=== PATIENT | male | born 1980 | race Caucasian/White ===

== ENCOUNTER 2018-02-26 12:31 | Emergency (ER) | payer SELFPAY ==
[~2018-02-26] VITALS: Ht 188 cm; Wt 125.0 kg
[~2018-02-26 12:31] MED LIST: IBUP800T23 PO; METO25 PO
[2018-02-26 12:34] VITALS: BP 183/126; PULSE 97; RESP 16; TEMP 97.3; O2SAT 98
--- NOTE | 2018-02-26 12:59 | PD ---
HPI Chief Complaint: Musculoskeletal Complaint Time Seen by Provider: 12:41 Travel History International Travel<30 days: No Contact w/Intl Traveler<30days: No Traveled to known affect area: No History of Present Illness HPI 37-year-old male presents emergency department for evaluation of right rib and low back pain. Says his back pain started 1 week ago after working and the rib pain began Miguelito after coughing. 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 Says the pain is worse with movement and decreases with rest. He points to his right lower lumbar paraspinous muscles. The pain is mild to moderate. No radiation of pain. Says he has fractured ribs previously after coughing and believes this is what happened Monday with his rib pain. Says the pain is worse with movement, decreased with rest. Pain is mild to moderate in severity. Aching. Denies trauma, loss of bowel or bladder function, saddle anesthesia, or weakness. Denies radicular pain. Denies abdominal pain. PFSH Past Medical History Diminished Hearing: No Hypertension: Yes Immunizations Current: No Myocardial Infarction: Yes Influenza Vaccination: No Past Surgical History Cardiac Surgery: Yes (angioplsty at age 13) Social History Alcohol Use: Yes (8 OR MORE DRINKS DAILY) Tobacco Use: Yes (2 PPD) Substance Use: No Allergies-Medications (Allergen,Severity, Reaction): Coded Allergies: No Known Allergies (Unverified Adverse Reaction, Unknown, 02/26/18) Reported Meds & Prescriptions Reported Meds & Active Scripts Active No Active Prescriptions or Reported Medications Review of Systems Except as stated in HPI: all other systems reviewed are Neg Physical Exam Narrative GENERAL: Well-nourished, well-developed patient. SKIN: Focused skin assessment warm/dry. HEAD: Normocephalic. EYES: No scleral icterus. No injection or drainage. NECK: Supple, trachea midline. No JVD or lymphadenopathy. CARDIOVASCULAR: Regular rate and rhythm without murmurs, gallops, or rubs. RESPIRATORY: Breath sounds equal bilaterally. No accessory muscle use. Slight wheeze GASTROINTESTINAL: Abdomen soft, non-tender, nondistended. No CVA tenderness Chest wall mildly tender to palpation in the lower axillary region without evidence of trauma BACK: No CVA tenderness. No rash. No point tenderness on palpation of the spine. Right paraspinous region just above the PSIS tender to palpation, reproducing his pain MUSCULOSKELETAL: No cyanosis, or edema. BACK: Nontender without obvious deformity. No CVA tenderness. Data Data Last Documented VS Vital Signs Date Time Temp Pulse Resp B/P (MAP) Pulse Ox O2 Delivery O2 Flow Rate FiO2 02/26/18 12:34 97.3 97 16 183/126 (145) 98 Orders Orders Chest, Pa & Lat (02/26/18 ) Spine, Lumbar - Ltd (Ap & Lat) (02/26/18 ) Methocarbamol (Robaxin) (02/26/18 13:00) Ed Discharge Order (02/26/18 13:45) [facility] Medical Decision Making Medical Screen Exam Complete: Yes Emergency Medical Condition: Yes Differential Diagnosis Lumbago, muscle spasms, rib fracture, costochondritis Narrative Course 37-year-old male presents emergency department evaluation right rib and low back pain that worsened over the last day. No red flag signs or symptoms. Vital signs are stable although he is mildly hypertensive, secondary to pain. Discussed my findings with the patient advised that images were not necessary at this point. Patient preferred to have imaging studies as he states that this is the worst back pain he has had. Chest x-ray and lumbar spine images ordered. Last Impressions Lumbar Spine X-Ray 02/26/18 0000 Signed Impressions: Service Date/Time: Monday, February 26, 2018 12:57 - CONCLUSION: Degenerative disc disease as above. Austen Cope MD FACR Chest X-Ray 02/26/18 0000 Signed Impressions: Service Date/Time: Monday, February 26, 2018 12:57 - CONCLUSION: Probably acute fracture of the left sixth rib. Probable old fracture as well. Austen Cope MD FACR Robaxin p.o. administered emergency department. Patient has an active lifestyle and I do not believe that he requires an incentive spirometer to avoid complications secondary to the rib fracture. Interestingly, patient did not complain of left rib pain. He complained of right rib pain that was not reproducible upon palpation. The lower back pain was reproducible upon palpation. No CVA tenderness. Patient will be discharged with Robaxin for outpatient use. Diagnosis Primary Impression: Muscle spasm Additional Impression: Rib fracture Qualified Codes: S22.32XA - Fracture of one rib, left side, initial encounter for closed fracture Referrals: Primary Care Physician Departure Forms: Tests/Procedures, Work Release Enter return to work date: Mar 01, 2018 Additional Instructions: Perform light stretches of the lower back and legs, and alternate heat and ice packs. If you develop increased pain, weakness, fever, chills, or bowel or bladder issues, return to the ED for further treatment and evaluation. Follow up with your primary care physician in 2-3 days. Scripts No Active Prescriptions or Reported Meds Disposition: 01 DISCHARGE HOME Condition: Stable Luna Jerry Feb 26, 2018 12:59
[2018-02-26] MEDS ORDERED: METHOCARBAMOL 500 MG TAB PO ONE (13:00)
--- NOTE | 2018-02-26 13:33 | RADRPT ---
EXAM DATE/TIME: 02/26/2018 12:57 [facility] COMPARISON: No previous studies available for comparison. INDICATIONS : Chest pain after coughing MEDICAL HISTORY : Hypertension. SURGICAL HISTORY : None. ENCOUNTER: Initial ACUITY: 1 day PAIN SCORE: 0/10 LOCATION: Right chest FINDINGS: PA and lateral views of the chest demonstrate the lungs to be symmetrically aerated without evidence of mass, infiltrate or effusion. The cardiomediastinal contours are unremarkable. Old rib fractures on the left with some soft tissue component.. Cannot entirely exclude an acute sixth rib fracture. CONCLUSION: Probably acute fracture of the left sixth rib. Probable old fracture as well. Austen Cope MD FACR on February 26, 2018 at 13:29 Board Certified Radiologist. This report was verified electronically.
--- NOTE | 2018-02-26 13:34 | RADRPT ---
EXAM DATE/TIME: 02/26/2018 12:57 [facility] COMPARISON: No previous studies available for comparison. INDICATIONS : Lumbar back pain MEDICAL HISTORY : Hypertension. SURGICAL HISTORY : None. ENCOUNTER: Initial ACUITY: 1 day PAIN SCORE: 6/10 LOCATION: lspine FINDINGS: Loss of disc space height at L5-S1. Minimal vacuum change is evident as well. Mild loss of disc spa ce height at L4-5. Moderate degenerative changes in the facets SI joints are normal. CONCLUSION: Degenerative disc disease as above. Austen Cope MD FACR on February 26, 2018 at 13:31 Board Certified Radiologist. This report was verified electronically.
== END 2018-02-26 13:53 | disposition home or self-care (01) ==
LOC: PHEFT 12:31
DX: M62.838 Other muscle spasm (principal); S22.32XA Fracture of one rib, left side, initial encounter for closed fracture; X58.XXXA Exposure to other specified factors, initial encounter; I10 Essential (primary) hypertension; I25.2 Old myocardial infarction; F17.200 Nicotine dependence, unspecified, uncomplicated
CPT/HCPCS: 71046; 72100; 99283

== ENCOUNTER 2018-04-24 16:17 | Emergency (ER) | payer OTHER ==
[~2018-04-24] VITALS: Ht 188 cm; Wt 124.0 kg
[2018-04-24 16:25] VITALS: BP 215/124; PULSE 114; RESP 16; TEMP 98.1; O2SAT 97
--- NOTE | 2018-04-24 16:36 | PD ---
HPI Chief Complaint: Musculoskeletal Complaint Time Seen by Provider: 16:34 Travel History International Travel<30 days: No Contact w/Intl Traveler<30days: No Traveled to known affect area: No History of Present Illness HPI 37-year-old male came to the emergency room with history of left knee joint swelling for past 5 days. Patient says that he has this problem every now and then and various different joints follow-up every now and then. 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 He was told once that he may have gout. He has never had a joint aspiration or a formal test for gout done. Patient is supposed to be on antihypertensive but he has not taken it for past few days. His blood pressure upon arrival was high and his heart rate was tachycardic. No history of fever or chills. Pain is there constantly but worsens when he tries to walk on the knee. He has been using crutches. No radiation of the pain. [facility] Past Medical History Narrative Medical List of his past medical, surgical, social and family history is reviewed from the nursing note. 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 Medrol Dosepak (Methylprednisolone) 4 Mg Dspk 4 Mg PO DIRECTED Per Pharmacist direction Reported Metoprolol Tartrate 25 Mg Tab 25 Mg PO DAILY Narrative Medication List of his home medications reviewed from the nursing note Review of Systems Except as stated in HPI: all other systems reviewed are Neg Musculoskeletal: Positive: Limited ROM, Edema, Pain Physical Exam Narrative GENERAL: Awake, alert, moderate distress SKIN: Focused skin assessment warm/dry. HEAD: Atraumatic. Normocephalic. EYES: Pupils equal and round. No scleral icterus. No injection or drainage. ENT: No nasal bleeding or discharge. Mucous membranes pink and moist. NECK: Trachea midline. No JVD. CARDIOVASCULAR: Regular rate and rhythm. No murmur appreciated. RESPIRATORY: No accessory muscle use. Clear to auscultation. Breath sounds equal bilaterally. GASTROINTESTINAL: Abdomen soft, non-tender, nondistended. Hepatic and splenic margins not palpable. MUSCULOSKELETAL: No obvious deformities. No clubbing. No cyanosis. Left knee swollen with decreased range of motion. NEUROLOGICAL: Awake and alert. No obvious cranial nerve deficits. Motor grossly within normal limits. Normal speech. PSYCHIATRIC: Appropriate mood and affect; insight and judgment normal. Data Data Last Documented VS Vital Signs Date Time Temp Pulse Resp B/P (MAP) Pulse Ox O2 Delivery O2 Flow Rate FiO2 04/24/18 19:00 04/24/18 18:41 97 16 98 Room Air 04/24/18 16:25 98.1 Orders Orders Knee, Complete (4vws) (04/24/18 ) Complete Blood Count With Diff (04/24/18 16:46) Basic Metabolic Panel (Bmp) (04/24/18 16:46) Uric Acid (04/24/18 16:46) Metoprolol Tartrate (Lopressor) (04/24/18 17:00) Acetamin-Hydrocod 325-5 Mg ([place] 5-325 (04/24/18 18:00) Ketorolac Inj (Toradol Inj) (04/24/18 18:00) Synovial Fluid Crystals (04/24/18 17:48) Lidocai-Epi 1%-1:100,000 Inj (Xylocaine- (04/24/18 18:00) Fluid Culture And Gram Stain (04/24/18 18:34) Prednisone (Deltasone) (04/24/18 18:45) Ed Discharge Order (04/24/18 18:34) ^ Knee Immobilizer (04/24/18 18:36) Splint Or Brace Apply/Monitor (04/24/18 18:44) Immobilizer Knee 20 Inch (04/24/18 ) Labs Laboratory Tests Test 04/24/18 17:00 04/24/18 18:35 White Blood Count 10.3 TH/MM3 Red Blood Count 4.78 MIL/MM3 Hemoglobin 15.1 GM/DL Hematocrit 45.1 % Mean Corpuscular Volume 94.3 FL Mean Corpuscular Hemoglobin 31.6 PG Mean Corpuscular Hemoglobin Concent 33.5 % Red Cell Distribution Width 14.1 % Platelet Count 265 TH/MM3 Mean Platelet Volume 8.4 FL Neutrophils (%) (Auto) 73.5 % Lymphocytes (%) (Auto) 16.8 % Monocytes (%) (Auto) 6.0 % Eosinophils (%) (Auto) 3.0 % Basophils (%) (Auto) 0.7 % Neutrophils # (Auto) 7.6 TH/MM3 Lymphocytes # (Auto) 1.7 TH/MM3 Monocytes # (Auto) 0.6 TH/MM3 Eosinophils # (Auto) 0.3 TH/MM3 Basophils # (Auto) 0.1 TH/MM3 CBC Comment DIFF FINAL Differential Comment Blood Urea Nitrogen 12 MG/DL Creatinine 0.92 MG/DL Random Glucose 108 MG/DL Calcium Level 8.7 MG/DL Uric Acid 7.5 MG/DL Sodium Level 139 MEQ/L Potassium Level 4.0 MEQ/L Chloride Level 103 MEQ/L Carbon Dioxide Level 29.4 MEQ/L Anion Gap 7 MEQ/L Estimat Glomerular Filtration Rate 92 ML/MIN Synovial Fluid Crystals POS - URIC ACID MDM Medical Decision Making Medical Screen Exam Complete: Yes Emergency Medical Condition: Yes Medical Record Reviewed: Yes Differential Diagnosis Gout, osteoarthritis, rheumatoid arthritis Narrative Course 6:39 PM x-ray of the knee shows significant joint effusion. Blood test results are mostly back and within normal limit. Uric acid goes to the main hospital lab and is still pending. I decided to do the joint aspiration. Patient tolerated the procedure well. Please refer to my procedure note. The microscopy study for crystals goes to the main hospital lab as well. Patient will be put on knee immobilizer. I have given him a dose of steroid and prescriptions to go home with. He shall be called to add on colchicine if the crystals come back positive. Patient is aware of this plan. I am comfortable discharging him home at this point. Procedures Procedure Narrative Left knee joint arthrocentesis: The anterior aspect of the knee joint was cleaned with Betadine swab 3. Superior medial aspect of the patella was approached to enter the joint. Local anesthesia was given with infiltration of 1% lidocaine with epi 5 mL. 18-gauge needle attached to a 60 cc syringe was introduced into the joint. 40 mL of cloudy-looking serous fluid was aspirated. Needle was taken out and pressure was held for 5 minutes. Patient tolerated the procedure well. Knee immobilizer will be applied by the nurse after this. EKG Prior to Arrival: No Diagnosis Primary Impression: Arthritis of knee Additional Impressions: Effusion of knee joint, left Hypertension Qualified Codes: I10 - Essential (primary) hypertension Noncompliance with medication regimen Referrals: Primary Care Physician 3 days Additional Instructions: You must take your hypertension medication like it supposed to. The joint fluid test once comes back positive he would be called and notified an additional medication would be prescribed. Take the medication prescription given to you as per the direction. Return to the ER if condition worsens or any other concerns. Keep the knee immobilizer on for next couple days at all times except while taking shower. Follow-up with your primary care next couple days. Med/Other Pt SpecificInfo: Prescription(s) given Scripts Omeprazole (Omeprazole) 20 Mg Tab 20 MG PO DAILY, #30 TAB 0 Refills Prov: Verito Bolanos MD 04/24/18 Indomethacin ER (Indomethacin ER) 75 Mg Caper 75 MG PO BID for 7 Days, #14 CAP 0 Refills Take with food, milk, or antacids to decrease stomach adverse effects. Prov: Verito Bolanos MD 04/24/18 Methylprednisolone Dosepak (Medrol Dosepak) 4 Mg Dspk 4 MG PO DIRECTED, #1 DSPK 0 Refills Per Pharmacist direction Prov: Verito Bolanos MD 04/24/18 Disposition: 01 DISCHARGE HOME Condition: Stable Verito Bolanos MD Apr 24, 2018 16:36
[2018-04-24] MEDS ORDERED: B/P MED PO (16:37)
[2018-04-24 16:47] VITALS: BP 185/100; PULSE 104; RESP 18; O2SAT 97
[2018-04-24] MEDS ORDERED: METO25TA3 PO (16:48)
[2018-04-24] MEDS ORDERED: METOPROLOL TARTRATE 50 MG TAB PO ONE (17:00)
[2018-04-24 17:16] LABS: AUTOMATED NEUTROPHIL # 7.6 TH/MM3 (1.8-7.7); BASOPHIL # 0.1 TH/MM3 (0-0.2); BASOPHIL % 0.7 % (0.0-2.0); EOSINOPHIL # 0.3 TH/MM3 (0-0.4); HEMATOCRIT 45.1 % (39.0-51.0); HEMOGLOBIN 15.1 GM/DL (13.0-17.0); LYMPH % 16.8 % (9.0-44.0); LYMPHOCYTE # 1.7 TH/MM3 (1.0-4.8); MEAN CELL VOLUME 94.3 FL (80.0-100.0); MEAN CORPUSCULAR HEMOGLOBIN 31.6 PG (27.0-34.0); MEAN CORPUSCULAR HGB CONC 33.5 % (32.0-36.0); MEAN PLATELET VOLUME 8.4 FL (7.0-11.0); MONOCYTE # 0.6 TH/MM3 (0-0.9); NEUT % 73.5 % (16.0-70.0); PLATELET COUNT 265 TH/MM3 (150-450); RED BLOOD COUNT 4.78 MIL/MM3 (4.50-5.90); RED CELL DISTRIBUTION WIDTH 14.1 % (11.6-17.2); WHITE BLOOD COUNT 10.3 TH/MM3 (4.0-11.0)
[2018-04-24 17:26] LABS: CALCIUM 8.7 MG/DL (8.5-10.1)
[2018-04-24 17:27] LABS: BICARBONATE 29.4 MEQ/L (21.0-32.0)
[2018-04-24 17:30] LABS: CREATININE 0.92 MG/DL (0.60-1.30)
[2018-04-24 17:40] VITALS: BP 170/91; PULSE 98; RESP 16; O2SAT 98
--- NOTE | 2018-04-24 17:42 | RADRPT ---
EXAM DATE: 04/24/2018 5:26 PM EDT AGE/SEX: 37 years / Male INDICATIONS: Patient complains of left knee pain. No known injury. CLINICAL DATA: This is the patient's initial encounter. Patient reports that signs and symptoms have been present for 4 - 6 days and indicates a pain score of 8/10. MEDICAL/SURGICAL HISTORY: . Gout. None. COMPARISON: No prior exams available for comparison. FINDINGS: Mild to moderate arthropathy is identified involving the medial joint compartment and patellofemoral joint. There is joint space narrowing with subchondral sclerosis and marginal spurring. Increased density is identified in the suprapatellar bursa. There is no evidence of acute fracture. CONCLUSION: 1. Mild to moderate arthropathy involving the medial joint compartment and patellofemoral joint. 2. Large joint effusion. 3. No evidence of acute fracture. Electronically signed by: Pete Mckee MD 04/24/2018 5:41 PM EDT
[2018-04-24] MEDS ORDERED: ACETAMINOPHEN/HYDROcodone 325 MG/5 MG TAB PO ONE (18:00)
[2018-04-24] MEDS ORDERED: LIDOCAINE 1%/EPINEPHrine 1:100,000 SOLN 50 ML VIAL INFIL ONE (18:00)
[2018-04-24] MEDS ORDERED: KETOROLAC TROMETHAMINE 60 MG/2 ML (IM) VIAL IM ONE (18:00)
[2018-04-24 18:41] VITALS: BP 185/97; PULSE 97; RESP 16; O2SAT 98
[2018-04-24] MEDS ORDERED: MEDR4PAK PO (18:44)
[2018-04-24] MEDS ORDERED: OMEP20TA93 PO (18:44)
[2018-04-24] MEDS ORDERED: INDO75CA3 PO (18:44)
[2018-04-24] MEDS ORDERED: predniSONE 20 MG TAB PO ONE (18:45)
== END 2018-04-24 19:00 | disposition home or self-care (01) ==
LOC: PHED 16:17
DX: M17.12 Unilateral primary osteoarthritis, left knee (principal); M25.462 Effusion, left knee; I10 Essential (primary) hypertension; I25.2 Old myocardial infarction; F17.200 Nicotine dependence, unspecified, uncomplicated; Z91.14 Patient's other noncompliance with medication regimen
CPT/HCPCS: 20610; 73564; 80048; 84550; 85025; 87070; 87205; 89060; 96372; 99284; J1885; J7512; L1830